=== PATIENT | female | born 1980 | race Two or more races ===

== ENCOUNTER 2025-01-31 14:36 | Outpatient (AMB) | payer OTHER, MEDICAID, SELFPAY ==
--- NOTE | 2025-01-31 14:59 | A.OFFVIS_ITS ---
Vital Signs 01/31/25 15:14 01/31/25 15:17 BP 157/105 H 167/114 H Position Sitting Standing Pulse 89 97 Intake Visit Reasons: 6M MIGRAINE Allergies aspirin Allergy (Unknown, Verified 01/31/25 15:03) Unknown Penicillins Allergy (Unknown, Verified 01/31/25 15:03) unknown Medication List - Last Reconciled 01/31/25 by Lea Byers CNP albuterol sulfate 90 mcg/actuation 2 puffs inhalation QID PRN amlodipine 10 mg PO DAILY galcanezumab-gnlm (Emgality Pen) 120 mg subcut QMONTH Lactobacillus acidoph-L.bulgar 1 million cell tabs PO BID lisinopril 5 mg PO DAILY metoclopramide HCl 5 mg PO DAILY PRN norethindrone acetate 5 mg PO DAILY sumatriptan succinate 100 mg PO DAILY PRN HPI Comments Details: 44-year-old woman with migraine headaches. She had episode earlier this month where she was talking to her daughter when she suddenly felt dizzy and shakey, and sat down. Her family said she passed out for about 3-4 minutes. She remembers telling her daughter she did not feel good and sitting down, and then waking to her family yelling her name and rubbing her chest. She felt a little out of it when she came to. No tongue bite or incontinence. EMS was called and her BP was 70/42, and she was brought to [facility]. She also had episode in 12/2024 when she got up to use the bathroom, and passed out and fell. This episode was few seconds. She says similar episodes have happened in the past, with SBP ranging from 60-80. She reports palpitations with and without episodes. She says her blood pressure usually runs high. She was referred to cardiology and was waiting for appointment. Emgality was helping with migraines. Migraines were not as frequent or severe. Sumatriptan as needed helped. She had FMLA forms to be completed. [facility] Medical History (Updated 01/31/25 @ 15:20 by Lea Byers CNP) Obesity Migraine Review of Systems Const Denies chills, Denies daytime sleepiness, Reports difficulty sleeping, Denies fatigue, Denies fever(s), Denies frequent falls, Reports headache(s), Denies increased appetite, Denies poor appetite, Denies snoring, Denies weakness, Denies weight gain and Denies weight loss Eyes Denies loss of vision ENT Denies vertigo, Denies dizziness and Reports headache(s) Card Denies chest pain at rest, Denies chest pain with activity, Denies syncope, Denies leg edema and Denies palpitations Resp Denies snoring GI Denies constipation, Denies heartburn, Denies diarrhea and Denies nausea Denies urinary frequency, Denies urinary incontinence and Denies urinary urgency Musc Denies abnormal gait, Denies numbness and Denies tingling Skin/Breast Denies dry skin and Denies rash Neuro Denies abnormal gait, Denies vertigo, Denies dizziness, Denies syncope, Denies frequent falls, Reports headache(s), Denies lack of coordination, Denies loss of vision, Denies memory loss, Denies numbness, Denies restless legs, Denies seizure-like activity, Denies tingling, Denies paresthesias, Denies tremor(s) and Denies weakness Psych Denies anxiety, Denies depression, Denies auditory hallucinations, Denies memory loss, Denies visual hallucinations and Denies suicidal ideation Endo Denies fatigue and Denies palpitations Physical Exam Const Other: General Appearance:? normal, in no acute distress. Skin:? no rashes, no significant birthmarks. Heart:? S1, S2 normal, no murmurs. Lungs:? clear anteriorly and posteriorly. Extremities:? no edema. Psych:? alert, oriented, cognitive function intact, cooperative with exam. Neuro Other: Mental Status:?Normal attention, orientation, memory and affect.? Cranial Nerves:?Pupils are equal, round and reactive to light. External occular muscles are intact. Visual salvador are full. Face is symmetrical. Facial sensations are normal. Tongue is midline. Palate elevates symmetrically. Shoulder shrugging is normal. Hearing to bedside conversation is normal. Sensory Exam:?....? Coordination:?No ataxia,?no titubation.? Gait Exam: Within normal limits. Cerebellar Signs:?[id number] is okay. Extrapyramidal System:?No tremor, rigidity with normal facial expressions.? Pronator Drift:?Not present.? Involuntary Movements:?No tremors seen.? Speech:?Normal.? Assessment & Plan Assessment & Plan (1) Migraine: Code(s): G43.909 - Migraine, unspecified, not intractable, without status migrainosus Category: Medical Qualifiers: Migraine type: unspecified Status migrainosus presence: without status migrainosus Intractability: not intractable Qualified Code(s): G43.909 - Migraine, unspecified, not intractable, without status migrainosus Plan: Continue Emgality Auto-injector 120mg/mL subcutaneous monthly. Continue sumatriptan 100mg 1 tablet as needed for migraines. Continue metoclopramide 5mg 1 tablet as needed for nausea/vomiting #10 for 30 days. FMLA forms completed. (2) Syncope: Code(s): R55 - Syncope and collapse Category: Medical Qualifiers: Syncope type: unspecified Qualified Code(s): R55 - Syncope and collapse Plan: EEG and 48hr holter monitor ordered. Will request records from [facility]. Follow up after testing or sooner as needed. (3) Hypertension: Code(s): I10 - Essential (primary) hypertension Category: Medical Qualifiers: Hypertension type: unspecified Qualified Code(s): I10 - Essential (primary) hypertension Plan: She was referred to cardiology and was waiting for appointment. Check BP at home and keep log, follow up with PCP, ER precautions reviewed. Plan Meds tried: Topamax, Prapranalol, Fiorecet, Verapamil, Emgality (worked), Depakote, nortriptyline, venlafaxine Orders: Orders EEG Routine Today R55 - Syncope and collapse ECG holter monitor 48 hour Today R55 - Syncope and collapse Coding Level of Care Code Est Pt Level 4 (79421) Diagnoses Migraine without status migrainosus, not intractable, unspecified migraine type G43.909 Migraine type: unspecified Status migrainosus presence: without status migrainosus Intractability: not intractable Syncope, unspecified syncope type R55 Syncope type: unspecified Hypertension, unspecified type I10 Hypertension type: unspecified
[2025-01-31 15:14] VITALS: BP 157/105; PULSE 89
[2025-01-31 15:17] VITALS: BP 167/114; PULSE 97
--- OUTSIDE RECORDS SUMMARY | 2025-01-31 18:46 | XMS_ITS | Clinical Summary ---
Author Organization [address] Address [address] [place] [phone] Phone Care Team Providers Care Easter Bunny Name Role Phone Car Smith MD Primary Care Provider [phone] Allergies Active Allergy Reactions Criticality Noted Date Comments Amoxicillin Trihydrate 09/20/2007 Other Reaction(s): Rash/Dermatitis Jmmtinl-Mulpddubuqeie-Tye feine 11/12/2009 Other Reaction(s): Hives/Urticaria Latex Itching 09/20/2007 Nitrofurantoin Headache,Nausea And Vomiting 10/12/2010 Medications aluminum chloride (Drysol Dab-O-Matic) 20 % external solution Apply once daily to both armpits 4 Active clotrimazole-bet amethasone (LOTRISONE) 1-0.05 % cream Apply locally BID x 5 days to vulva area prn rash as directed. 4 Active omeprazole (PriLOSEC) [address] capsule TAKE 1 CAPSULE BY MOUTH EVERY DAY 4 Active SUMAtriptan (IMITREX) 100 mg tablet Take 100 mg by mouth daily as needed. May repeat dose once after 2 hours, if needed. Active Emgality Pen 120 mg/mL injection pen Inject 1 mL (120 mg total) under the skin every 28 (twenty-eigh t) days. Active norethindrone (AYGESTIN) 5 mg tablet Take 1 tablet (5 mg total) by mouth 1 (one) time each day. 5 Active cetirizine (ZyrTEC) 10 mg tablet Take 1 tablet (10 mg total) by mouth 1 (one) time each day. 90 each 1 5 Active lisinopriL (PRINIVIL,ZESTRI L) 5 mg tablet TAKE 1 TABLET BY MOUTH EVERY DAY 90 tablet 1 5 Active amLODIPine (NORVASC) 10 mg tablet Take 1 tablet (10 mg total) by mouth 1 (one) time each day. 90 tablet 1 5 Active albuterol HFA (PROAIR HFA ; PROVENTIL HFA ; VENTOLIN HFA) 90 mcg/actuation inhaler Inhale 2 puffs by mouth 4 (four) times a day if needed for wheezing. 8.5 g 2 5 Active Lactobacillus acidophilus 100 mg (1 billion cell) capsule Take 1 capsule by mouth 2 (two) times a day. 60 each 5 02/12/20 25 Active sulfamethoxazole -trimethoprim (Bactrim DS) 800-160 mg per tablet Take 1 tablet by mouth 2 (two) times a day for 7 days. 14 each 5 01/20/20 25 Active Problems Problem Noted Date Diagnosed Date Morbid obesity 04/26/2023 Primary hypertension 05/31/2022 Axillary hyperhidrosis 09/04/2014 Renal mass, left 03/06/2013 Overview (04/04/2024): Renal mass, left- Angiomyolipoms / USG done in 01/2013 and 2013 Insomnia 05/03/2011 Migraine 09/20/2007 Encounters Date Type Department Care Team Description 01/11/2025 10:30 PM EST - 01/12/2025 3:[address] [facility] Emergency [address] [place] [id number] Car Winchester MD Left leg pain (Primary Dx); Syncope and collapse; Acute cystitis without hematuria; Dehydration Discharge Disposition: Home or Self Care 12/26/2024 [facility] [address] [facility] [place] [phone] Car Smith MD 12/12/2024 Results Follow-Up Internal Medicine - [facility] [address] [place] [phone] Car Smith MD 12/11/2024 12:00 PM EDT Office Visit Internal Medicine - [address] [phone] Car Smith MD Adult general medical examination (Primary Dx); Screening for deficiency anemia; Screening for hyperlipidemia; Screening for diabetes mellitus; Screening for thyroid disorder; Urinary urgency; Primary hypertension 12/11/2024 Telephone Internal Medicine - [address] [phone] Car Smith MD from Last 3 Months Immunizations Immunization Administration Dates Next Due Influenza Quadravalent, MDCK , 0.5ml, preservative free (Flucelvax) 6mo and older 11/12/2022 Influenza trivalent, with pr eservative (Fluzone; Afluria) 6mo and older 01/21/2009 Naldo SARS-CoV-2 COVID-19, mRNA, LNP-S, preservative free 12/05/2020 Td Tetanus diptheria (Tdvax) 7yo and older 09/19 Tdap Tetanus diptheria acell ular pertussis (Boostrix; Adacel) 7yo and older 03/26/2019 Surgical History Surgery Date Site/Laterality Comments OTHER SURGICAL HISTORY PROCEDURE: CT HYSTEROTOMY ABDOMINAL; COMMENT: laser surgery TUBAL LIGATION PROCEDURE: HISTORICAL TUBAL LIGATION Medical History Medical History Date Comments Migraine 09/20/2007 DX:Migraine Angiomyolipoma DX:Angiomyolipom a Primary hypertension 05/31/2022 DX:Primary hypertension Mild intermittent asthma, uncomplicated DX:Mild intermittent asthma, uncomplicated Primary hypertension 05/31/2022 Family History Medical History Relation Name Comments Other: Car crash Father diet in car crash Stroke Maternal Grandfather Cataracts Maternal Grandmother Diabetes Maternal Grandmother Glaucoma Maternal Grandmother Hyperlipidemia Maternal Grandmother Hypertension Maternal Grandmother myelody splastic syndrome, DM, HL, osteoporosis Other: healthy Mother Stroke Paternal Grandfather Cataracts Paternal Grandmother Glaucoma Paternal Grandmother Hypertension Paternal Grandmother HL, ost eoporosis Liver disease Paternal Grandmother Breast cancer Neg Hx Colon cancer Neg Hx Ovarian cancer Neg Hx Relation Name Status Comments Brother Alive Daughter Alive Father car accident Maternal Grandfather dm Maternal Grandmother Alive dm Mother Alive Paternal Grandfather Paternal Grandmother Social History Tobacco Use Types Packs/Day Years Used Date Smoking Tobacco: Every Day Cigarettes Smokeless Tobacco: Never Tobacco Cessation:Ready to Q uit: Not Asked; Counseling Given: Not Answered Alcohol Use Standard Drinks/Week Comments Not Currently 0 (1 standard drink = 0.6 oz pur e alcohol) Comments No Sex and Gender Information Value Date Recorded Sex Assigned at Not on file Legal Sex Female 2:18 PM EST Gender Identity Not on file Sexual Orientation Not on file Obstetrics History Para Term AB IAB SAB Ectopic Multiple Livin g Live Births 2 2 2 2 Date Outcome GA Total Labor Labor/2nd/3rd Weight Sex Type Anes PTL Darlene A1 A5 Name Clin Term Term Last Filed Vital Signs Vital Sign Reading Time Taken Comments Blood Pressure 106/84 01/11/2025 10:39 PM EST Pulse 66 01/11/2025 10:48 PM EST Temperature 36.4 C (97.6 F) 01/11/2025 10:39 PM EST Respiratory Rate 18 01/11/2025 10:48 PM EST Oxygen Saturation 100% 01/11/2025 10:39 PM EST Inhaled Oxygen Concentration - - Weight 102 kg (225 lb) 01/11/2025 10:48 PM EST Height 157.5 cm (5' 2 ) 01/11/2025 10:48 PM EST Body Mass Index 41.15 01/11/2025 10:48 PM EST Plan of Treatment Health Maintenance Due Date Last Done Comments Hepatitis B Vaccines (1 of 3 - 19+ 3-dose series) 02/23/1999 Pneumococcal Vaccine: Pediatrics (0 to 5 Years) and At-Risk Patients (6 to 49 Years) (1 of 2 - PCV) 02/23/1999 HPV Vaccines (1 - 3-dose SCDM series) 02/23/2007 HIV Screening 01/23/2022 Social Influencers of Health Screening 01/23/2022 COVID-19 Vaccine ( season) 2024 05/13/2022, 12/21/2020, 12/05/2020, Additional history exists Influenza Vaccine (#1) 2024 , 01/21/2009, 12/12/2006 Hypertension/CHF/CAD Annual BMP Blood Test 01/12/2026 01/12/2025, 12/11/2024, 09/07/2024, Additional history exists Breast Cancer Screening 02/13/2026 02/14/20 24, 01/18/2023, 07/15/2020, Additional history exists Cervical Cancer Screening: HPV 09/21/2028 09/22/2023 DTaP,Tdap,and Td Vaccines (3 - Td or Tdap) 03/26/2029 03/26/2019, 09/20/2007 Cholesterol Screening (Lipid Panel) 12/11/2029 12/11/2024, 09/07/2024, 04/26/2023 RSV Immunization Adult Patients (1 - 1-dose 75+ series) 02/23/2055 Hepatitis C Screening Completed 09/05/2014 Depression Screening Completed 08/23/2024 HIB Vaccines Aged Out No longer eligi ble based on patient's age to complete this topic Hepatitis A Vaccines Aged Out No long er eligible based on patient's age to complete this topic IPV Vaccines Aged Out No longer eligi ble based on patient's age to complete this topic MMR Vaccines Aged Out No longer eligi ble based on patient's age to complete this topic Meningococcal ACWY Vaccine Aged Out N o longer eligible based on patient's age to complete this topic Meningococcal B Vaccine Aged Out No l onger eligible based on patient's age to complete this topic RSV Immunization Patients Under 20 months Aged Out No longer eligible based on patient's age to complete this topic Varicella Vaccines Aged Out No longer eligible based on patient's age to complete this topic Procedures Procedure Name Priority Date/Time Associated Diagnosis Comments [facility]AMS URINE CULTURE TUBE STAT 01/12/2025 1:06 AM EST URINALYSIS WITH REFLEX MICROSCOPIC AND CULTURE STAT 01/12/2025 1:06 AM EST HCG QUALITATIVE, URINE STAT 01/12/2025 1:06 AM EST URINALYSIS WITH REFLEX MICROSCOPIC AND CULTURE STAT 01/12/2025 1:06 AM EST CULTURE URINE STAT 01/12/2025 1:06 AM EST CBC WITH AUTO DIFFERENTIAL STAT 01/12/2025 12:20 AM EST CBC AND DIFFERENTIAL STAT 01/12/2025 12:20 AM EST TROPONIN I HIGH SENSITIVITY STAT 01/12/2025 12:20 AM EST LACTATE, WITH REFLEX STAT 01/12/2025 12:20 AM EST LIPASE STAT 01/12/2025 12:20 AM EST COMPREHENSIVE METABOLIC PANEL STAT 01/12/2025 12:20 AM EST XR CHEST 1 VIEW STAT 01/12/2025 12:20 AM EST VAS US DUPLEX LOWER EXT VENOUS LEFT STAT 01/11/2025 11:32 PM EST Left leg pain Syncope and collapse ECG 12-LEAD STAT 01/11/2025 10:54 PM EST COMPLETE BLOOD COUNT Routine 12/11/2024 12:26 PM EDT Screening for deficiency anemia COMPREHENSIVE METABOLIC PANEL Routine 12/11/2024 12:26 PM EDT Screening for diabetes mellitus LIPID PANEL WITH REFLEX TO DIRECT LDL Routine 12/11/2024 12:26 PM EDT Screening for hyperlipidemia THYROID STIMULATING HORMONE WITH REFLEX TO FREE T4 AND FREE T3 Routine 12/11/2024 12:26 PM EDT Screening for thyroid disorder CULTURE URINE Routine 12/11/2024 12:26 PM EDT Urinary urgency MG MAMMO DIGITAL SCREENING W GIORGIO BILAT Routine 02/14/2024 7:47 AM EST Encounter for screening mammogram for breast cancer HM HPV Routine 09/22/2023 HM HEPATITIS C SCREENING Routine 09/05/2014 from Last 3 Months or Most Recently Relevant to Health Maintenance Results * (ABNORMAL) Urinalysis with reflex microscopic and culture (01/12/2025 1:06 AM EST) Specific [place] Urine 1.030 1.003 - 1.030 LAB URINALYSIS - AUTOMATED METHOD 01/12/2025 2:54 AM [facility] pH, Urine 5.5 5.0 - 8.0 pH LAB URINALYSIS - AUTOMATED METHOD 01/12/2025 2:54 AM [facility] Leukocytes, Urine Negative Negative LAB URINALYSIS - AUTOMATED METHOD 01/12/2025 2:54 AM [facility] Nitrite, Urine Negative Negative LAB URINALYSIS - AUTOMATED METHOD 01/12/2025 2:54 AM [facility] Protein, Urine 30(A) <=Trace mg/dL LAB URINALYSIS - AUTOMATED METHOD 01/12/2025 2:54 AM [facility] Glucose, Urine Negative Negative mg/dL LAB URINALYSIS - AUTOMATED METHOD 01/12/2025 2:54 AM [facility] Ketones, Urine Trace(A) Negative mg/dL LAB URINALYSIS - AUTOMATED METHOD 01/12/2025 2:54 AM [facility] Urobilinogen , Urine 1.0 0.2 - 1.0 mg/dL LAB URINALYSIS - AUTOMATED METHOD 01/12/2025 2:54 AM [facility] Bilirubin, Urine Negative Negative LAB URINALYSIS - AUTOMATED METHOD 01/12/2025 2:54 AM [facility] Blood, Urine Moderate(A) Negative LAB URINALYSIS - AUTOMATED METHOD 01/12/2025 2:54 AM [facility] RBC, Urine 10(H) 0 - 4 /HPF 01/12/2025 2:54 AM [facility] WBC, Urine 4 0 - 4 /HPF 01/12/2025 2:54 AM EST [facility] Squamous Epithelial, Urine 20 0 - 60 /LPF 01/12/2025 2:54 AM [facility] Bacteria, Urine Moderate(A) Negative /HPF 01/12/2025 2:54 AM [facility] Hyaline Casts, Urine 10(H) 0 - 3 /LPF 01/12/2025 2:54 AM [facility] Mucus, Urine Moderate None /HPF 01/12/2025 2:54 AM [facility] Urine Urine specimen obtained by clean catch procedure / Unknown Non-blood Collection / Unknown 01/12/2025 1:06 AM EST 01/12/2025 1:52 AM EST us Car Winchester MD LAB URINE ORDERABLES Final Resul t Performing Organization Address City/[facility]/ZIP Co de Phone Number [facility] [address] [place] [address], [place] [phone] * [place] urine culture tube (01/12/2025 1:06 AM EST) Extra Tube Hold for add-ons. 01/12/2025 3:10 AM EST [facility] Comment:Auto resulted. Urine Urine specimen obtained by clean catch procedure / Unknown Non-blood Collection / Unknown 01/12/2025 1:06 AM EST 01/12/2025 1:52 AM EST us Car Winchester MD LAB URINE ORDERABLES Final Resul t [facility] [address] [place] [address], [place] [phone] * , Urine (01/12/2025 1:06 AM EST) Preg Test, Ur Negative Negative 01/12/2025 2:18 AM EST [facility] Urine Urine specimen obtained by clean catch procedure / Unknown Non-blood Collection / Unknown 01/12/2025 1:06 AM EST 01/12/2025 1:52 AM EST us Car Winchester MD LAB URINE ORDERABLES Final Resul t Performing Organization Address [facility]/ZIP Co de Phone Number [facility] [address] [place] [address], [place] [phone] * Culture urine (01/12/2025 1:06 AM EST) Only the most recent of2 resultswithin the time period is included. Culture, Urine <10,000 cfu/ml, insignificant count, no further workup. 01/13/2025 10:24 AM EST [facility] Urine Urine specimen obtained by clean catch procedure / Unknown Non-blood Collection / Unknown 01/12/2025 1:06 AM EST 01/12/2025 2:54 AM EST us Car Winchester MD LAB MICROBIOLOGY - GENERAL ORDER ZOILA Final Result Performing Organization Address [facility] de Phone Number [facility] [address] [place] [address], [place] [phone] * Lactate, with Reflex (01/12/2025 12:20 AM EST) LACTIC ACID 1.0 0.4 - 2.0 mmol/L 01/12/2025 1:05 AM EST [facility] Blood Venous blood specimen / Unknown Venipuncture / Unknown 01/12/2025 12:20 AM EST 01/12/2025 12:23 AM EST us Car Winchester MD LAB BLOOD ORDERABLES Final Resul t Performing Organization Address City/[facility]/ZIP Co de Phone Number [facility] [address] [place] [address], * Troponin I High Sensitivity (01/12/2025 12:20 AM EST) [facility] High Sensitivity Troponin I <3 <=34 ng/L 01/12/2025 1:06 AM [facility] Blood Venous blood specimen / Unknown Venipuncture / Unknown 01/12/2025 12:20 AM EST 01/12/2025 12:23 AM EST us Car Winchester MD LAB BLOOD ORDERABLES Final Resul t [facility] [address] [place] [address], [place] [phone] * (ABNORMAL) CBC auto differential (01/12/2025 12:20 AM EST) [facility] WBC 12.3(H) 4.8 - 10.8 K/mcL LAB HEMETOLOGY METHOD 01/12/2025 12:44 AM [facility] RBC 4.40 3.80 - 4.80 M/mcL LAB HEMETOLOGY METHOD 01/12/2025 12:44 AM [facility] Hemoglobin 13.9 11.5 - 16.0 g/dL LAB HEMETOLOGY METHOD 01/12/2025 12:44 AM [facility] Hematocrit 41.5 35.0 - 47.0 % LAB HEMETOLOGY METHOD 01/12/2025 12:44 AM [facility] MCV 94.3 79.0 - 98.0 FL LAB HEMETOLOGY METHOD 01/12/2025 12:44 AM [facility] MCH 31.6 27.0 - 32.0 pcg LAB HEMETOLOGY METHOD 01/12/2025 12:44 AM [facility] MCHC 33.5 32.0 - 37.0 g/dL LAB HEMETOLOGY METHOD 01/12/2025 12:44 AM [facility] RDW 12.5 11.0 - 15.0 % LAB HEMETOLOGY METHOD 01/12/2025 12:44 AM [facility] Platelets 273 130 - 400 K/mcL LAB HEMETOLOGY METHOD 01/12/2025 12:44 AM [facility] MPV 10.0 7.0 - 11.0 FL LAB HEMETOLOGY METHOD 01/12/2025 12:44 AM [facility] NRBC 0.0 <1.0 % LAB HEMETOLOGY METHOD 01/12/2025 12:44 AM [facility] NRBC Absolute 0.00 <0.10 K/mcL LAB HEMETOLOGY METHOD 01/12/2025 12:44 AM [facility] Neutrophils Relative 81.9 % LAB HEMETOLOGY METHOD 01/12/2025 12:44 AM [facility] Lymphocytes Relative 10.0 % LAB HEMETOLOGY METHOD 01/12/2025 12:44 AM [facility] Monocytes Relative 5.3 % LAB HEMETOLOGY METHOD 01/12/2025 12:44 AM [facility] Eosinophils Relative 2.3 % LAB HEMETOLOGY METHOD 01/12/2025 12:44 AM [facility] Basophils Relative 0.2 % LAB HEMETOLOGY METHOD 01/12/2025 12:44 AM [facility] Immature Granulocytes Relative 0.3 % LAB HEMETOLOGY METHOD 01/12/2025 12:44 AM [facility] Neutrophils Absolute 10.09(H) 1.50 - 7.00 K/mcL LAB HEMETOLOGY METHOD 01/12/2025 12:44 AM [facility] Lymphocytes Absolute 1.24 1.00 - 5.00 K/mcL LAB HEMETOLOGY METHOD 01/12/2025 12:44 AM [facility] Monocytes Absolute 0.66 0.20 - 1.00 K/mcL LAB HEMETOLOGY METHOD 01/12/2025 12:44 AM EST [facility] Eosinophils Absolute 0.28 0.00 - 0.50 K/mcL LAB HEMETOLOGY METHOD 01/12/2025 12:44 AM EST [facility] Basophils Absolute 0.03 0.00 - 0.20 K/mcL LAB HEMETOLOGY METHOD 01/12/2025 12:44 AM EST [facility] Immature Granulocytes Absolute 0.04(H) 0.00 - 0.03 K/mcL LAB HEMETOLOGY METHOD 01/12/2025 12:44 AM EST [facility] Blood Venous blood specimen / Unknown Venipuncture / Unknown 01/12/2025 12:20 AM EST 01/12/2025 12:23 AM EST us Car Winchester MD LAB BLOOD ORDERABLES Final Resul t [facility]) [facility] [address] [place] [address], [place] [phone] * XR Chest 1 View (01/12/2025 12:20 AM EST) Anatomical Region Laterality Modality Body Radiographic Sylvia ging 01/12/2025 9:21 AM EST Impressions 01/12/2025 9:21 AM EST FINDINGS/IMPRESSION: Lungs are clear. No pleural effusion or pneumothorax. Cardiac silhouette is mildly enlarged. Bones are normal. -------- FINAL REPORT -------- Dictated By: HARPAL FOSTER Dictated Date: 01/12/2025 09:21 ET Assigned Physician: HARPAL FOSTER Reviewed and Electronically Signed By: HARPAL FOSTER Signed Date: 01/12/2025 09:21 ET Workstation ID: [id number] Transcribed By: Self Edit Transcribed Date: 01/12/2025 09:21 ET Narrative 01/12/2025 9:21 AM EST XR CHEST 1 VIEW INDICATION: Syncope TECHNIQUE: XR CHEST 1 VIEW COMPARISON: 06/07/2023 Procedure Note Harpal Foster MD - 01/12/2025 XR CHEST 1 VIEW INDICATION: Syncope TECHNIQUE: XR CHEST 1 VIEW COMPARISON: 06/07/2023 IMPRESSION: FINDINGS/IMPRESSION: Lungs are clear. No pleural effusion orpneumothorax. Cardiac silhouette is mildly enlarged. Bones are normal. -------- FINAL REPORT -------- Dictated By: HARPAL FOSTER Dictated Date: 01/12/2025 09:21 ET Assigned Physician: HARPAL FOSTER Reviewed and Electronically Signed By: HARPAL FOSTER Signed Date: 01/12/2025 09:21 ET Workstation ID: [id number] Transcribed By: Self Edit Transcribed Date: 01/12/2025 09:21 ET us Car Winchester MD IMG XR PROCEDURES Final Result * Lipase (01/12/2025 12:20 AM EST) [facility] Lipase 26 12 - 53 unit/L 01/12/2025 1:08 AM EST [facility] Blood Venous blood specimen / Unknown Venipuncture / Unknown 01/12/2025 12:20 AM EST 01/12/2025 12:23 AM EST us Car Winchester MD LAB BLOOD ORDERABLES Final Resul t [facility] [address] [place] [address], [place] [phone] * (ABNORMAL) Comprehensive Metabolic Panel (CMP) (01/12/2025 12:20 AM EST) Only the most recent of2 resultswithin the time period is included. [facility] Sodium 138 133 - 145 mmol/L 01/12/2025 1:08 AM EST [facility] Potassium 4.0 3.5 - 5.5 mmol/L 01/12/2025 1:08 AM EST [facility] Chloride 105 96 - 110 mmol/L 01/12/2025 1:08 AM [facility] CO2 27 21 - 32 mmol/L 01/12/2025 1:08 AM [facility] Anion Gap 6 3 - 11 01/12/2025 1:08 AM [facility] Glucose 97 70 - 100 mg/dL 01/12/2025 1:08 AM [facility] BUN 13 5 - 25 mg/dL 01/12/2025 1:08 AM [facility] Creatinine 1.04 0.50 - 1.10 mg/dL 01/12/2025 1:08 AM [facility] eGFR 68 >=60 mL/min/1. 73m2 01/12/2025 1:08 AM [facility] Comment:Calculation based on the Chronic Kidney Disease Epidemiology Collaboration (CKD-EPI) equation refit without adjustment for race. BUN/Creatinine Ratio 12.5 01/12/2025 1:08 AM [facility] Calcium 7.9(L) 8.5 - 10.5 mg/dL 01/12/2025 1:08 AM [facility] AST (SGOT) 15 10 - 42 unit/L 01/12/2025 1:08 AM [facility] ALT (SGPT) 13 10 - 60 unit/L 01/12/2025 1:08 AM [facility] Alkaline Phosphatase 76 42 - 121 unit/L 01/12/2025 1:08 AM [facility] Total Protein 6.5 6.0 - 8.0 g/dL 01/12/2025 1:08 AM [facility] Albumin 4.1 3.2 - 5.0 g/dL 01/12/2025 1:08 AM [facility] Total Bilirubin 0.4 0.0 - 1.4 mg/dL 01/12/2025 1:08 AM EST [facility] Blood Venous blood specimen / Unknown Venipuncture / Unknown 01/12/2025 12:20 AM EST 01/12/2025 12:23 AM EST us Car Winchester MD LAB BLOOD ORDERABLES Final Resul t [facility] ([facility]) [facility] [address] [place] [address], [place] [phone] * Vascular US duplex lower extremity venous left (01/11/2025 11:32 PM EST) Anatomical Region Laterality Modality Vascular, Abdomen Ultrasound 01/12/2025 10:3 1 AM EST Impressions 01/12/2025 10:31 AM EST NO LEFT LOWER EXTREMITY DEEP VENOUS THROMBOSIS. -------- FINAL REPORT -------- Dictated By: HARPAL FOSTER Dictated Date: 01/12/2025 10:31 ET Assigned Physician: HARPAL FOSTER Reviewed and Electronically Signed By: HARPAL FOSTER Signed Date: 01/12/2025 10:31 ET Workstation ID: [id number] Transcribed By: Self Edit Transcribed Date: 01/12/2025 10:31 ET Narrative 01/12/2025 10:31 AM EST PROCEDURE: VAS US DUPLEX LOWER EXT VENOUS LEFT INDICATION: Edema, pain TECHNIQUE: 2-D and color Doppler imaging of the left lower extremity venous vasculature with compression and augmentation maneuvers. COMPARISON: No priors available. FINDINGS: There is normal flow, compression, and augmentation from the common femoral through the popliteal vein. Visualized calf veins are patent Procedure Note Harpal Foster MD - 01/12/2025 PROCEDURE: VAS US DUPLEX LOWER EXT VENOUS LEFT INDICATION: Edema, pain TECHNIQUE: 2-D and color Doppler imaging of the left lower extremityvenous vasculature with compression and augmentation maneuvers. COMPARISON: No priors available. FINDINGS: There is normal flow, compression, and augmentation from the commonfemoral through the popliteal vein. Visualized calf veins are patent IMPRESSION: NO LEFT LOWER EXTREMITY DEEP VENOUS THROMBOSIS. -------- FINAL REPORT -------- Dictated By: HARPAL FOSTER Dictated Date: 01/12/2025 10:31 ET Assigned Physician: HARPAL FOSTER Reviewed and Electronically Signed By: HARPAL FOSTER Signed Date: 01/12/2025 10:31 ET Workstation ID: [id number] Transcribed By: Self Edit Transcribed Date: 01/12/2025 10:31 ET Car Winchester MD CV VASCULAR PROCEDURES Final Res ult * ECG 12 lead (01/11/2025 10:54 PM EST) Ventricular Rate ECG 66 BPM GEMUSE Atrial Rate 66 BPM GEMUSE P-R Interval 138 ms GEMUSE QRS Duration 84 ms GEMUSE Q-T Interval 406 ms GEMUSE QTc 425 ms GEMUSE P Wave [place] 15 degrees GEMUSE R [place] 34 degrees GEMUSE T [place] 14 degrees GEMUSE ECG Interpretation Normal sinus rhythm Nonspecific T wave abnormality Abnormal ECG When compared with ECG of 07-JUN-2023 20:11, No significant change was found Confirmed by SHON BARKSDALE ([id number]) on 01/12/2025 10:12:31 AM GEMUSE 01/11/2025 10:5 4 PM EST 01/12/2025 10:12 AM EST Car Winchester MD ECG ORDERABLES Final Result GEMUSE * Thyroid stimulating hormone with reflex to free t4 and free t3 (12/11/2024 12:26 PM EDT) TSH 0.88 0.40 - 4.00 mcIU/mL LAB CHEMISTRY METHOD 12/11/2024 5:21 PM EDT [facility] Blood Venous blood specimen / Unknown Venipuncture / Unknown 12/11/2024 12:26 PM EDT 12/11/2024 12:26 PM EDT Car Smith MD LAB BLOOD ORDERABLES Final Res ult Performing Organization Address City/[facility]/ZIP Co de Phone Number [facility] [address] [place] [address], [place] [phone] * Lipid panel with reflex to direct LDL (12/11/2024 12:26 PM EDT) Cholesterol 157 0 - 200 mg/dL LAB CHEMISTRY METHOD 12/11/2024 4:53 PM EDT [facility] Triglycerides 49 0 - 150 mg/dL LAB CHEMISTRY METHOD 12/11/2024 4:53 PM EDT [facility] HDL 48 >=40 mg/dL LAB CHEMISTRY METHOD 12/11/2024 4:53 PM EDT [facility] LDL Calculated 99 0 - 100 mg/dL LAB CHEMISTRY METHOD 12/11/2024 4:53 PM EDT [facility] Comment:Estimated LDL Calcul ated using equation: Total cholesterol - HDL cholesterol - (Triglycerides/5) VLDL Cholesterol Abhilash 9.8 mg/dL LAB CHEMISTRY METHOD 12/11/2024 4:53 PM EDT [facility] Non HDL Chol. (LDL+VLDL) 109 <145 mg/dL LAB CHEMISTRY METHOD 12/11/2024 4:53 PM EDT [facility] Chol/HDL Ratio 3.3 0.0 - 4.4 LAB CHEMISTRY METHOD 12/11/2024 4:53 PM EDT [facility] Blood Venous blood specimen / Unknown Venipuncture / Unknown 12/11/2024 12:26 PM EDT 12/11/2024 12:26 PM EDT us Car Smith MD LAB BLOOD ORDERABLES Final Res ult [facility] [address] [place] [address], [place] [phone] * Complete blood count (12/11/2024 12:26 PM EDT) [facility] WBC 7.3 4.8 - 10.8 K/mcL LAB HEMETOLOGY METHOD 12/11/2024 1:55 PM EDT [facility] RBC 4.70 3.80 - 4.80 M/mcL LAB HEMETOLOGY METHOD 12/11/2024 1:55 PM EDT [facility] Hemoglobin 14.4 11.5 - 16.0 g/dL LAB HEMETOLOGY METHOD 12/11/2024 1:55 PM EDT [facility] Hematocrit 43.9 35.0 - 47.0 % LAB HEMETOLOGY METHOD 12/11/2024 1:55 PM EDT [facility] MCV 94.0 79.0 - 98.0 FL LAB HEMETOLOGY METHOD 12/11/2024 1:55 PM EDT [facility] MCH 30.8 27.0 - 32.0 pcg LAB HEMETOLOGY METHOD 12/11/2024 1:55 PM EDT [facility] MCHC 32.8 32.0 - 37.0 g/dL LAB HEMETOLOGY METHOD 12/11/2024 1:55 PM EDT [facility] RDW 12.8 11.0 - 15.0 % LAB HEMETOLOGY METHOD 12/11/2024 1:55 PM EDT [facility] Platelets 294 130 - 400 K/mcL LAB HEMETOLOGY METHOD 12/11/2024 1:55 PM EDT [facility] MPV 10.6 7.0 - 11.0 FL LAB HEMETOLOGY METHOD 12/11/2024 1:55 PM EDT [facility] NRBC 0.0 <1.0 % LAB HEMETOLOGY METHOD 12/11/2024 1:55 PM EDT [facility] NRBC Absolute 0.00 <0.10 K/mcL LAB HEMETOLOGY METHOD 12/11/2024 1:55 PM EDT [facility] Blood Venous blood specimen / Unknown Venipuncture / Unknown 12/11/2024 12:26 PM EDT 12/11/2024 12:26 PM EDT us Car Smith MD LAB BLOOD ORDERABLES Final Res ult [facility] [address] [place] [address], [place] [phone] * MG Mammo Digital Screening w Giorgio bilat (02/14/2024 7:47 AM EST) Anatomical Region Laterality Modality Breast Bilateral Mammography 02/16/2024 6:54 AM EST Impressions 02/16/2024 7:06 AM EST Benign. BI-RADS CATEGORY: 2 - BENIGN RECOMMENDATION: Screening bilateral mammogram is recommended in 1 year. Mammo Location: [facility], [address] [place] [address], [id number], . -------- FINAL REPORT -------- Dictated By: Mere Sommers Dictated Date: 02/16/2024 06:54 ET Assigned Physician: Mere Sommers Reviewed and Electronically Signed By: Mere Sommers Signed Date: 02/16/2024 07:06 ET Workstation ID: [id number] Transcribed By: Self Edit Transcribed Date: 02/16/2024 06:54 ET Narrative 02/16/2024 7:06 AM EST CLINICAL: 43 Computer-aided detection was utilized in evaluation of this exam (CAD). FINDINGS: There is no evidence of suspicious mass or architectural distortion. No worrisome calcifications are evident. Previously documented cysts in the upper outer right breast are again noted. There has been no significant change from prior exam(s). BREAST DENSITY: C - The breasts are heterogeneously dense which may obscure small masses. Procedure Note Mere Sommers MD - 02/16/2024 CLINICAL: 43 Computer-aided detection was utilized in evaluation of thisexam (CAD). FINDINGS: There is no evidence of suspicious mass or architectural distortion. Noworrisome calcifications are evident. Previously documented cysts in theupper outer right breast are again noted. There has been no significantchange from prior exam(s). BREAST DENSITY: C - The breasts are heterogeneously dense which mayobscure small masses. IMPRESSION: Benign. BI-RADS CATEGORY: 2 - BENIGN RECOMMENDATION: Screening bilateral mammogram is recommended in 1 year. Mammo Location: [facility], [address] [place] [address], [phone], . -------- FINAL REPORT -------- Dictated By: Mere Sommers Dictated Date: 02/16/2024 06:54 ET Assigned Physician: Mere Sommers Reviewed and Electronically Signed By: Mere Sommers Signed Date: 02/16/2024 07:06 ET Workstation ID: [id number] Transcribed By: Self Edit Transcribed Date: 02/16/2024 06:54 ET Car Smith MD IMG BI PROCEDURES Final Result * Cervical Cancer Screening: HPV (09/22/2023) Pathologist [facility] Cervical Cancer Screening: HPV negative,a bstracted Historical Provider HEALTH MAINTENANCE Final Result * Hepatitis C Screening (09/05/2014) Pathologist [facility] Hepatitis C Screening abstracted Historical Provider HEALTH MAINTENANCE Final Result from Last 3 Months or Most Recently Relevant to Health Maintenance [facility] [place] [facility] [place] [facility] Care Teams Easter Bunny Relationship Specialty Start Date End Date Car Smith MD [address] [place] [id number] PCP - General Internal Medicine 05/03/11
--- OUTSIDE RECORDS SUMMARY | 2025-01-31 18:46 | XMS_ITS | Data Portability ---
Author Organization [facility] [address] Address [address] [place] [address] Care Team Providers Care Hand Mounter Name Role Phone SANDRA KNOWLES Primary Care Provider Assessment No assessment recorded. Plan of Treatment Reminders Order Date Submit Date Provider Last Modified By Organization Details Last Modified Time Details Appointments None recorded. Lab None recorded. Referral None recorded. Procedures None recorded. Surgeries None recorded. Imaging None recorded. Medication Orders doxycycline hyclate 100 mg capsule 2022 023 [id number], [phone] [place], [address], 18:47:07 Patient TargetsNo targets recorded. Patient Instructions Encounter Date Encounter Id Patient Instructions Last Modified By Organization Details Last Modified Time 04/10/2022 [id number] Acute Sinusitis: Care Instructions [email or web address] Not available 04/10/2022 18:47:05 Take the antibiotic as prescribed. Take over the counter mucinex per package instructions. Drink plenty of fluids. See printed instructions. Follow-up with your doctor if no improvement in a few days. Seek Emergency Medical evaluation for any worsening symptoms. [email or web address] Not available 04/10/2022 18:48:14 Reason for Referral None Reported. Problems Name Problem SNOMED Code Status Onset Date Resolution Date Notes Provider Name and Address Organization Details Recorded Time Migraine [id number] Active 023 [facility] 04/10/2022 18:32:10 Problem Notes None recorded. Procedures Surgical History Date Name Laterality Status Provider Name and Address Organization Details Recorded Time ligation of bilateral fallopian tubes completed WILLIAM KATHLEENWINE PA - [facility] 04/10/2022 18:33:04 Imaging Results None recorded. Procedure Notes None recorded. Medical Equipment None Reported. Allergies Allergen ID Allergen Name Allergen Category Reaction Reaction Severity Criticality Documentation Date Start Date Code Code System Note Provider Name and Address Organization Details Recorded Time 065583 amoxicill in medicatio n hives Not available Not available 04/10/2022 723 RxNorm WILLIAM DRINKWINE null, PA - [facility] 18:30:38 213108 Product containin g penicilli n (product) medicatio n hives Not available Not available 04/10/2022 73437 8001 SNOMED WILLIAM DRINKWINE null, PA - [facility] 18:30:50 798347 latex environme nt,medica tion Not available Not available Not available 04/10/2022 92672 91 RxNorm WILLIAM DRINKWINE null, PA - [facility] 18:30:59 Medications Name Sig Start Date Stop Date Status Note LastModified by Organization Details LastModified Time venlafaxine ER 37.5 mg capsule,exte nded release 24 hr TAKE 1 CAPSULE BY MOUTH EVERY DAY WITH FOOD 04/10 completed Not Available Not Available Not Available venlafaxine ER 75 mg capsule,exte nded release 24 hr TAKE 1 CAPSULE BY MOUTH EVERY DAY WITH FOOD active Not Available Not Available No t Available doxycycline hyclate 100 mg capsule TAKE 1 CAPSULE BY MOUTH TWICE A DAY FOR 10 DAYS active Not Available Not Available No t Available sumatriptan 100 mg tablet TAKE 1 TABLET BY MOUTH EVERY DAY NEEDED active Not Available Not Available No t Available sulfamethoxa zole 800 mg-trimethop rim 160 mg tablet TAKE 1 TABLET BY MOUTH TWO TIMES A DAY 04/10 completed Not Available Not Available Not Available metocloprami de 5 mg tablet TAKE 1 TABLET BY MOUTH EVERY DAY BEFORE MEALS NEEDED 04/10 completed Not Available Not Available Not Available nortriptylin e 10 mg capsule TAKE 1 CAPSULE BY MOUTH EVERY DAY AT BEDTIME 04/10 completed Not Available Not Available Not Available Vitals Date Recorded Body height Body mass index (BMI) Body weight Oxygen saturation Pain severity - 0-10 verbal numeric rating [Score] - Reported Heart rate Respiratory rate Body temperature Systolic And Diastolic Provider Name and Address Organization Details Last Updated DateTime 3 157.48 cm 41.7 kg/m2 877349. 06 g 100 % 10 102 /min 16 /min 97.2 [degF] 130/84 mm[Hg] WILLIAM DRINKWINE PA - [facility] 3 18:33:40 Social History Question Answer Notes LastModified by Organizat ion Details LastModified Time Tobacco Smoking Status Current Every Day Smoker 2 cig per day WILLIAM DRINKWINE null, PA - [facility] 04/10/2022 18:32:53 Have You Recently Traveled Abroad? No [email or web address] Information not available 04/10/2022 Sex: Unknown Functional Status None recorded. Mental Status None recorded. Family History Nothing Reported. Medical History No medical history recorded. Gynecological HistoryNo gynecological history recorded. Obstetrics History GPAL:G 0 P 0 0 0 0 Immunizations Vaccine Type Date Status Note Provider Nam e and Address Organization Details Recorded Time COVID-19, mRNA, LNP-S, PF, 30 mcg/0.3 mL dose 1 completed WILLIAM DRINKWINE null, PA - [facility] 04/10/2022 18:30:17 COVID-19, mRNA, LNP-S, PF, 30 mcg/0.3 mL dose 1 completed WILLIAM DRINKWINE null, PA - [facility] 04/10/2022 18:30:17 COVID-19, mRNA, LNP-S, PF, 30 mcg/0.3 mL dose 1 completed WILLIAM DRINKWINE null, PA - [facility] 04/10/2022 18:30:17 Tdap 0 completed WILLIAM DRINKWINE null, PA - [facility] 04/10/2022 18:30:17 Influenza, split virus, trivalent, preservative 9 completed WILLIAM DRINKWINE null, PA - [facility] 04/10/2022 18:30:17 Td (adult), 2 Lf tetanus toxoid, preservative free, adsorbed 8 completed WILLIAM DRINKWINE null, PA - [facility] 04/10/2022 18:30:17 Past Encounters Encounter ID Performer Location Encounter Start Date Encounter Closed Date Diagnosis/Indication Diagnosis SNOMED-CT Code Diagnosis ICD10 Code Diagnosis IMO Codes Diagnosis Note [id number] [facility] [facility] [address] [facility] [place] [address] 01/15/2018 17:05:15 01/15/2018 18:27:27 [id number] Leslie Bang MD [address] [facility] [place] [address] 04/10/2022 15:00:29 04/10/2022 18:48:57 Acute sinusitis 39013486 J01.90 Health Concerns Section Related Observation LastModified by Organization Detai ls LastModified Time None Recorded Concern Status LastModified by Organization Details LastModified Time None Recorded Advance Directives Directive None Recorded Payers Insurance Date Sequence Insurance Name Policy Number Policy Reinoso Covered Member ID Reinoso Member ID Guarantor Name 04/10/2022 1 [facility] (INDEMNITY) [id number] 3 Zorinayda Chele [id number] Zorinayda Chele Notes Date Note Type Note Provider Name and Address Organization Details Recorded Time 04/10/2022 text/html Sinus ComplaintsReported by PatientHPIFor location, patient reportsfacial painandsinus pressurebut reportsleft side. For associated symptoms, patient reportsnasal discharge from both nostrils,headache forehead,post nasal drip, andcoughbut reportsno fever,no difficulty breathing,no nausea or vomiting,no ear fullness,no eye itching, andno dizziness(nasal congestion.). For quality, patient reportsworsening. For risk factors, patient reportscurrent smoking or tobacco use. For alleviating factors, patient reportsnothing gives relief. For duration, patient reportsconstant. For severity, patient reportsmoderate. For context, patient reportsno recent upper respiratory infectionandno recent sick contacts. For aggravating factors, patient reportsnothing makes it worse. For prior treatment, patient reportsoral decongestant. For onset/timing, (began 10 days ago.).42 year old female presenting for evaluation of left frontal and maxillary sinus pain and pressure with nasal congestion, yellow nasal discharge, post nasal drip and dry cough getting worse for the past 10 days. Over the counter decongestants have not helped. Her left upper jaw is now painful. No fever, chills, generalized headache, rash, stiff neck, ear pain, sore throat, dental pain, chest pain, shortness of breath, GI symptoms or body aches.ROS as noted in the HPI Leslie Bang MD [address] [facility] [place], [address], [place] - [facility] 04/10/2022 18:54:47 OBGyn Episode No OBEpisode recorded.
--- OUTSIDE RECORDS SUMMARY | 2025-01-31 18:46 | XMS_ITS | Patient Health Record ---
[facility] Address [address] [place] [address] Reason For Referral No Information Plan Of Treatment No Information Insurance Providers Payer Name Payer Address Payer Phone Subscriber Number Group Number Insured Name Patient Relationship to Insured Coverage Start Date Coverage End Date [employer] (FÁTIMA FRIAS) [address] [place] [address] [id number] LEIGHANN PANDYA Self - patient is the insured
--- OUTSIDE RECORDS SUMMARY | 2025-01-31 18:46 | XMS_ITS | Encounter Summary ---
Author Organization [facility] Address [address] [place] [address] Care Team Providers Care Ornamental Rail Installer Name Role Phone Car Smith MD Primary Care Provider [phone] Encounter Details Date Type Department Care Team (Late st Contact Info) Description 12/12/2024 Results Follow-Up Internal Medicine - [address] [address] Car Smith MD [address] [place] [address] Social History Tobacco Use Types Packs/Day Years Used Date Smoking Tobacco: Light Smoker Smokeless Tobacco: Never Alcohol Use Standard Drinks/Week Comments Yes 0 (1 standard drink = 0.6 oz pur e alcohol) Comments No Sex and Gender Information Value Date Recorded Sex Assigned at Not on file Legal Sex Female 2:18 PM EST Gender Identity Not on file Sexual Orientation Not on file documented as of this encounter Plan of Treatment Not on file documented as of this encounter Visit Diagnoses Not on filedocumented in this encounter Additional Health Concerns Assessment Noted Time PHQ-9 Depression Total Score: 1 08/24/19 25 11:00 AM EDT documented as of this encounter Care Teams Ornamental Rail Installer Relationship Specialty Start Date End Date Car Smith MD [address] [place] [id number] PCP - General Internal Medicine 05/03/11 documented as of this encounter
== END 2025-01-31 15:25 | disposition home or self-care (01) ==
LOC: HO.HSM 14:37
PROVIDERS: PCP Internal Medicine; Referring Provider Internal Medicine; Visit Provider Registered Nurse
DX: G43.909 Migraine, unspecified, not intractable, without status migrainosus (principal); R55 Syncope and collapse; I10 Essential (primary) hypertension
CPT/HCPCS: 99214